=== PATIENT | male | born 1990 | race Asian ===

== ENCOUNTER 2019-06-30 17:40 | Emergency (ER) | payer OTHER ==
[~2019-06-30] VITALS: Ht 180.3 cm; Wt 129.5 kg
[~2019-06-30 17:40] MED LIST: AMOXICILLIN 8751 TAB PO; MELATONIN5 M1 PO
[2019-06-30 17:52] VITALS: BP 153/95; TEMP 97.8
[2019-06-30 20:45] VITALS: PULSE 77
== END 2019-06-30 20:45 | disposition home or self-care (01) ==
LOC: COL.ER 17:40
DX: S80.01XA Contusion of right knee, initial encounter (principal); F17.290 Nicotine dependence, other tobacco product, uncomplicated; F12.90 Cannabis use, unspecified, uncomplicated; V43.52XA Car driver injured in collision with other type car in traffic accident, initial encounter